=== PATIENT | male | born 1960 | race Caucasian/White ===

== ENCOUNTER → 2016-07-13 | Outpatient (CLI) | payer MEDICAID ==
--- NOTE | 2016-07-13 10:40 | US ---
EXAMINATION: Right upper quadrant ultrasound HISTORY: Elevated enzymes COMPARISON: None TECHNIQUE: Grayscale and color Doppler images obtained of the right upper quadrant FINDINGS: The pancreas is not well characterized. The liver is moderately increased in generalized e chotexture without a focal hepatic mass. The gallbladder wall thickness is normal. No pericholecysti c fluid or shadowing gallstones. The Common bile duct measures 2 mm. The right kidney measures 12.3 cm [id number] without evidence of hydronephrosis. No abdominal ascites. Sonographic Vanegas sign is not reported. IMPRESSION: 1. Fatty infiltration of the liver, otherwise unremarkable right upper quadrant ultrasound.
== END ==
LOC: MW.US 08:49
PROVIDERS: ATTEND Internal Medicine
DX: R74.0 Nonspecific elevation of levels of transaminase and lactic acid dehydrogenase [LDH] (principal); K76.0 Fatty (change of) liver, not elsewhere classified
CPT/HCPCS: 76705; 76705-26

== ENCOUNTER 2018-01-11 18:58 | Emergency (ER) | payer MEDICAID ==
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
[2018-01-11 19:49] VITALS: BP 150/99
== END 2018-01-11 19:35 | disposition home or self-care (01) ==
LOC: MW.ED 18:58
DX: L72.3 Sebaceous cyst (principal); E03.9 Hypothyroidism, unspecified; Z79.899 Other long term (current) drug therapy
CPT/HCPCS: 99283